=== PATIENT | male | born 1985 | race Caucasian/White ===

== ENCOUNTER 2020-07-20 06:54 | Outpatient (NON) | payer OTHER, SELFPAY ==
[2020-07-21 13:08] LABS: SARS-CoV-2 RNA PCR Negative
== END 2020-07-20 06:55 ==
LOC: ANHCOVIDDT 06:57
DX: Z20.828 Contact with and (suspected) exposure to other viral communicable diseases (principal)
CPT/HCPCS: 87635; C9803; U0003

== ENCOUNTER → 2020-11-25 00:08 | Outpatient (CLI) | payer OTHER, SELFPAY ==
[2020-11-25 18:59] LABS: SARS-CoV-2 RNA PCR Negative
== END ==
PROVIDERS: PCP Emergency Medicine; Visit Provider Internal Medicine Gastroenterology
DX: Z01.812 Encounter for preprocedural laboratory examination (principal); Z20.822 Contact with and (suspected) exposure to COVID-19
CPT/HCPCS: C9803; U0003; U0005

== ENCOUNTER 2020-11-28 00:49 | Day surgery (SDC) | payer OTHER, SELFPAY ==
[2020-11-15 12:07] VITALS: BMI 23.5
[2020-11-28 06:49] VITALS: BP 118/64; PULSE 106; RESP 16; TEMP 36.4; O2SAT 100
[2020-11-28] MEDS: LACTATED RINGERS 1,000 ML 150 ML IV CONT (07:01)
--- NOTE | 2020-11-28 07:20 | WPDANESEPPF ---
Anes - Initial Pre Proc Eval Procedure: Operation Date: 11/28/20 08:00 Proposed Procedures p Esophagogastroduodenoscopy & Colonoscopy - Ollie Alvarez MD Date/Time: 11/28/20 07:20 Surgeon: Ollie Alvarez MD Pre Op Diagnosis: Bloating, Diarrhea Patient Data Age: 35 Gender: M Height: 5 ft 6 in Weight: 64.5 kg Last Vital Signs Temp 97.6 F 11/28/20 06:49 Pulse 106 H 11/28/20 06:49 Resp 16 11/28/20 06:49 BP 118/64 11/28/20 06:49 Pulse Ox 100 11/28/20 06:49 Allergies Allergy/AdvReac Type Severity Reaction Status Date / Time dairy AdvReac Diarrhea Uncoded 11/15/20 12:12 soy AdvReac Diarrhea Uncoded 11/15/20 12:12 Home Medications Medication Instructions Recorded Confirmed Type alprazolam 0.25 mg tablet 0.25 mg PO .PRN tablet 10/05/20 11/15/20 History dextroamphetamine-amphetamine ER 30 mg PO DAILY 10/05/20 11/15/20 History 30 mg 24hr capsule,extend release dextroamphetamine-amphetamine ER 5 5 mg PO DAILY 10/05/20 11/15/20 History mg 24hr capsule,extend release triamcinolone acetonide 10 mg/mL 2 mg INFILTRATION ONCE 10/05/20 11/15/20 History suspension for injection sodium,potassium,mag sulfates See Rx Instructions .ROUTE 10/17/20 Rx [Suprep Bowel Prep Kit] .COMPLEX #1 ml sertraline 100 mg PO DAILY 11/15/20 11/15/20 History Patient hx anesthesia problems: none Family hx anesthesia problems: none PMFSH Past Medical History Medical History (Updated 10/05/20 @ 13:54 by Ollie Alvarez MD) Allergic eczema Irritable bowel syndrome with diarrhea Social History Social History (Updated 10/05/20 @ 13:36 by Dorothy Parsons CMA) Smoking status: Never smoker Alcohol intake: current Drinks per week: 10 Substance use: never Substance use type: does not use Living arrangements: with family Gender identity (if verbalized by the patient): Male Spiritual care concerns: No Anes - Eval Final PreProcedure Day of Procedure 11/28/20 07:20 Patient weight: normal Heart: regular rate and rhythm Lungs: clear to auscultation Airway: Mallampati scale class II Neurological: alert and oriented Last oral intake: >/= 8 hours ASA classification: II Emergent: no Anesthetic plan: proceed Anesthesia type and monitoring: general GIVS and standard monitoring Informed Consent: The patient's anesthetic plan and its attendant risks and benefits were discussed with the patient/family/POA. Questions were solicited and answers provided to the satisfaction of the patient/family/POA.
--- NOTE | 2020-11-28 07:28 | PM.HPGS ---
History of Present Illness History of Present Illness Consent: Risks, benefits, and alternatives have been discussed and questions answered. Patient agrees to proceed with procedure. Chief complaint: Bloating, Diarrhea Narrative: Isac Dudley is a 35 year old male here with years of loose stool and occasionally eczema, symptom improved after 5 years ago avoid any dairy product and later on also soy. He will get egd and colonoscopy Review of Systems Constitutional: Constitutional: Denies headache(s) and Denies weakness Eyes: Eyes: Denies blurry vision ENT: Reports Normal hearing present, Denies headache(s) and Denies neck pain Cardiovascular: Cardiovascular: Denies chest pain and Denies dyspnea Respiratory: Respiratory: Denies dyspnea Gastrointestinal: Gastrointestinal: Reports no additional gastrointestinal complaints Genitourinary: Genitourinary: Denies dysuria Musculoskeletal: Musculoskeletal: Denies neck pain Integumentary/Breasts: Skin/Breast: Denies dry skin Neurologic: Reports Normal hearing present, Denies headache(s) and Denies weakness Psychiatric: Psychiatric: Denies anxiety Endocrine: Endocrine: Denies change in body appearance Hematologic/Lymphatic: Hematologic/Lymphatic: Denies easy bleeding Allergic/Immunologic: Allergic/Immunologic: Denies urticaria PMFSH Past Medical History Medical History (Updated 10/05/20 @ 13:54 by Ollie Alvarez MD) Allergic eczema Irritable bowel syndrome with diarrhea Social History Social History (Updated 10/05/20 @ 13:36 by Dorothy Parsons CMA) Smoking status: Never smoker Alcohol intake: current Drinks per week: 10 Substance use: never Substance use type: does not use Living arrangements: with family Gender identity (if verbalized by the patient): Male Spiritual care concerns: No Meds Home Medications and Allergies Home Medications Medication Instructions Recorded Confirmed Type alprazolam 0.25 mg tablet 0.25 mg PO .PRN tablet 10/05/20 11/15/20 History dextroamphetamine-amphetamine ER 30 mg PO DAILY 10/05/20 11/15/20 History 30 mg 24hr capsule,extend release dextroamphetamine-amphetamine ER 5 5 mg PO DAILY 10/05/20 11/15/20 History mg 24hr capsule,extend release triamcinolone acetonide 10 mg/mL 2 mg INFILTRATION ONCE 10/05/20 11/15/20 History suspension for injection sodium,potassium,mag sulfates See Rx Instructions .ROUTE 10/17/20 Rx [Suprep Bowel Prep Kit] .COMPLEX #1 ml sertraline 100 mg PO DAILY 11/15/20 11/15/20 History Allergies Allergy/AdvReac Type Severity Reaction Status Date / Time dairy AdvReac Diarrhea Uncoded 11/15/20 12:12 soy AdvReac Diarrhea Uncoded 11/15/20 12:12 Vital Signs Vital Signs - 24 hr 11/28/20 06:49 Temperature 97.6 F Pulse Rate 106 H Respiratory Rate 16 Blood Pressure 118/64 Pulse Oximetry 100 Exam Const: General: comfortable and no acute distress HENMT: General nose exam: Normal nares present Eyes: General: appearance normal, both eyes and all related structures Neck: Neck: no JVD Resp: Auscultation: clear to auscultation bilaterally Cardio: Rate: regular rate Rhythm: regular rhythm GI: Inspection: non-distended GI Palp: Yes Soft to palpation Skin: General skin exam: normal color Neuro: General: gait normal Speech: normal speech Extrem: General: normal to inspection Psych: Mental Status: mental status grossly normal Assessment and Plan Assessment and plan (1) Irritable bowel syndrome with diarrhea: Code(s): K58.0 - Irritable bowel syndrome with diarrhea Status: Acute Assessment and Plan: egd and colonoscopy, assess for celiac and microscopic colitis (2) Allergic eczema: Code(s): L23.9 - Allergic contact dermatitis, unspecified cause Status: Acute
[2020-11-28] MEDS: BENZOCAINE (*SP) 60 ML SPRAY CAN (HURRICAINE) 1 SPRAY MUCOUS MEM (07:34)
[2020-11-28 08:00] VITALS: BP 106/66; PULSE 78; RESP 18; O2SAT 100
[2020-11-28 08:10] VITALS: BP 110/71; PULSE 86; RESP 24; O2SAT 100
[2020-11-28 08:20] VITALS: BP 109/73; PULSE 77; RESP 22; O2SAT 100
== END 2020-11-28 08:34 | disposition home or self-care (01) ==
PROVIDERS: PCP Emergency Medicine; Visit Provider Internal Medicine Gastroenterology
PROC: 0DJ08ZZ Inspection of Upper Intestinal Tract, Via Natural or Artificial Opening Endoscopic (ICD-10-PCS; CPT 43235; principal; 2020-11-28 08:00)
DX: K58.0 Irritable bowel syndrome with diarrhea (principal); R14.0 Abdominal distension (gaseous); K64.8 Other hemorrhoids; L30.9 Dermatitis, unspecified
CPT/HCPCS: 43239; 45385; 88305; C9803; J2704; J7120; U0003; U0005

== ENCOUNTER → 2023-02-08 07:58 | Outpatient (CLI) | payer OTHER, SELFPAY ==
--- NOTE | ~2023-02-08 | US_ITS ---
US abdomen limited INDICATION: Elevated liver enzymes PROCEDURE: Realtime right upper abdominal ultrasound. COMPARISON: No prior studies for comparison. FINDINGS: The pancreas is normal without focal mass or pancreatic ductal dilation. Liver echotexture is increased, consistent with fatty infiltration. There is normal directional flow in the portal ve in. The gallbladder is normal without stones, gallbladder wall thickening or pericholecystic fluid. Comm on bile duct measures 3 mm. No sonographic Walker's sign. IMPRESSION: 1: Hepatic steatosis. Reviewed, dictated and finalized at location B. IMPRESSION: 1: Hepatic steatosis.
== END ==
PROVIDERS: PCP Family Medicine; Visit Provider Family Medicine
DX: R79.89 Other specified abnormal findings of blood chemistry (principal); K76.0 Fatty (change of) liver, not elsewhere classified
CPT/HCPCS: 76705